=== PATIENT | male | born 1960 | race Caucasian/White ===

== ENCOUNTER 2025-02-15 01:49 | Day surgery (SDC) | payer OTHER, SELFPAY ==
--- NOTE | 2025-02-05 07:48 | P.HP_ITS ---
History of Present Illness History of Present Illness Consent: Risks, benefits, and alternatives have been discussed and questions answered. Patient agrees to proceed with procedure. Chief complaint: elevated psa Narrative: Leo Dean is a 64 year old male former patient of Dr. Mckenzie recently found to have a PSA 11 and a 4K score of 88 (increased risk profile). Prostate MRI shows 1 region of interest. After discussion of options he has elected to proceed with an MRI guided biopsy and is aware the risk including, but not limited to, failure to diagnose cancer, rectal bleeding and systemic infection Review of Systems Review of Systems: All systems reviewed & are unremarkable except as noted in HPI and below Exam Const: General: no acute distress Resp: Effort & Inspection: normal respiratory effort GI: Inspection: non-distended GI Palp: No abdominal tenderness and No Guarding due to palpation present (GI) Auscultation: normal bowel sounds Assessment and Plan Assessment and plan (1) Elevated PSA: Code(s): R97.20 - Elevated prostate specific antigen [PSA] Status: Acute Assessment and Plan: * Uronav prostate biopsy
[2025-02-06 14:14] VITALS: BMI 25.4
--- NOTE | 2025-02-06 14:41 | PC.NURSE ---
Report to the Outpatient Waiting Room, entrance under the green pavilion located off [facility], at time _10:00AM on date 02/15/25 . Planned Procedure Time: __12:00PM .? Time changes happen often and if your time is changed the preop area will call you the afternoon before. - You and your visitor will be asked to self-screen and do not enter if you have any COVID symptoms. Please call surgeon if you need to reschedule. - A mask is optional within the hospital at this time. Patients may have clear liquids (water, carbonated beverages, clear teas, apple juice) until 3 hours prior to surgery with a maximum of 20 ounces. - No food from midnight until time of surgery and no smoking, or chewing tobacco (or any form of nicotine). No chewing gum, candy or mints. - Take only the following medications with a SIP of water on the morning of surgery: _LEVOTHYROXINE DO NOT STOP ANY OF YOUR OTHER PRESCRIPTION MEDICATIONS PRIOR TO SURGERY EXCEPT THE FOLLOWING Hold all vitamins and supplements for 3 days per anesthesiologist. Medications to discontinue per physician ASPIRIN Date to take last dose____02/08/25 Please no make-up, nail japanese, hairspray, perfume, deodorant, or body powder the day of surgery.? No jewelry (including any body piercings) or valuables the day of surgery, leave them at home.? Please take a shower or bath the night before, or the morning of, surgery with an antibacterial soap.? Wear comfortable, loose fitting clothing.? - Jewelry must be removed prior to entering the operating room.? Rings and piercings that are not removed may be cut off. - The hospital will not accept responsibility for valuables.? - Please leave all valuables, including medications, at home the day of surgery. If you are going home after surgery, a licensed driver education road instructor must drive you home.? - NO public transportation without another adult if you receive anesthesia. - We recommend that an adult stay with you for 24 hours following discharge. - We also recommend that you do not drive, make important decision, drink alcoholic beverages, or take any drugs that were not prescribed by your health care provider for at least 24 hours after your discharge time. For Pediatric surgeries, we recommend two adults accompany the child home. Follow any additional instructions given to you from your surgeon. Telephone instructions given to and asked if any additional questions and then verbalized understanding. Patient advised to call surgeon office or pre surgery nurse liaison [phone] if any additional questions.
--- NOTE | 2025-02-06 14:45 | PC.NURSE ---
Report to the Outpatient Waiting Room, entrance under the green pavilion located off [facility], at time __10:00AM on date 02/15/25 . Planned Procedure Time: __12:00PM .? Time changes happen often and if your time is changed the preop area will call you the afternoon before. - You and your visitor will be asked to self-screen and do not enter if you have any COVID symptoms. Please call surgeon if you need to reschedule. - A mask is optional within the hospital at this time. Patients may have clear liquids (water, carbonated beverages, clear teas, apple juice) until 3 hours prior to surgery with a maximum of 20 ounces. - No food from midnight until time of surgery and no smoking, or chewing tobacco (or any form of nicotine). No chewing gum, candy or mints. Take only the following medications with a SIP of water on the morning of surgery: ____LEVOTHYROXINE DO NOT STOP ANY OF YOUR OTHER PRESCRIPTION MEDICATIONS PRIOR TO SURGERY EXCEPT THE FOLLOWING Hold all vitamins and supplements for 3 days per anesthesiologist. Medications to discontinue per physician ASPIRIN Date to take last dose 02/08/25 Please no make-up, nail dominican, hairspray, perfume, deodorant, or body powder the day of surgery.? No jewelry (including any body piercings) or valuables the day of surgery, leave them at home.? Please take a shower or bath the night before, or the morning of, surgery with an antibacterial soap.? Wear comfortable, loose fitting clothing.? - Jewelry must be removed prior to entering the operating room.? Rings and piercings that are not removed may be cut off. - The hospital will not accept responsibility for valuables.? - Please leave all valuables, including medications, at home the day of surgery. If you are going home after surgery, a licensed tractor sweeper driver must drive you home.? - NO public transportation without another adult if you receive anesthesia. - We recommend that an adult stay with you for 24 hours following discharge. - We also recommend that you do not drive, make important decision, drink alcoholic beverages, or take any drugs that were not prescribed by your health care provider for at least 24 hours after your discharge time. Follow any additional instructions given to you from your surgeon. Telephone instructions given to OLEKSANDR and asked if any additional questions and then verbalized understanding. Patient advised to call surgeon office or pre surgery nurse liaison [phone] if any additional questions.
--- OUTSIDE RECORDS SUMMARY | 2025-02-15 01:53 | XMS_ITS | Clinical Summary ---
Author Organization [facility] Address [facility] [place] [address] Care Team Providers Care Purification Director Name Role Phone Alex Mcmanus MD Primary Care Provider +1- [phone] Allergies No known active allergies Medications aspirin 81 mg enteric coated tablet 01/04/2019 Active atorvastatin (LIPITOR) 10 mg tablet 01/04/2019 Active SYNTHROID 50 mcg tablet 01/04/2019 Active AMITIZA 24 mcg capsule 01/23/2019 Active VIAGRA 100 mg tablet 01/04/2019 Active Active Problems Problem Noted Date Diagnosed Date Impaired cognition 01/24/2014 Surgical History Surgery Date Site/Laterality Comments HI THORACOSCOPY W/PLEURODESIS Thoracoscopy (Therapeutic) With Pleurodesis - (Added by TW Conv) Medical History Medical History Date Comments Other pneumothorax Spontaneous p neumothorax - twice within 6 months in 1994, unclear etiology (Added by TW Conv) Family History Medical History Relation Name Comments Stroke Other Stroke Syndrome - grandmother, in old age (Added by TW Conv) Relation Name Status Comments Other Social History Tobacco Use Types Packs/Day Years Used Date Smoking Tobacco: Never Personal Safety Answer Date Recorded Getting School Help Needed Not on file 08/27 Sex and Gender Information Value Date Recorded Sex Assigned at Not on file Legal Sex Male 11:02 AM MANAGER STORY Gender Identity Not on file Sexual Orientation Not on file Obstetrics History Last Filed Vital Signs Vital Sign Reading Time Taken Comments Blood Pressure 107/61 06/24/2018 1:13 PM MANAGER STORY Pulse 56 06/24/2018 1:13 PM MANAGER STORY Temperature 36.3 C (97.3 F) 06/24/2018 1:13 PM MANAGER STORY Respiratory Rate - - Oxygen Saturation 100% 06/24/2018 1:13 PM MANAGER STORY Inhaled Oxygen Concentration - - Weight 78.5 kg (173 lb) 06/24/2018 1:13 PM MANAGER STORY Height 175.3 cm (5' 9) 06/24/2018 1:13 PM MANAGER STORY Body Mass Index 25.55 06/24/2018 1:13 PM MANAGER STORY Plan of Treatment Not on file Insurance [facility] CLAIMS Care Teams Purification Director Relationship Specialty Start Date End Date Alex Mcmanus MD [address] [address] PCP - General 07/22/18
--- OUTSIDE RECORDS SUMMARY | 2025-02-15 01:53 | XMS_ITS | Encounter Summary ---
Author Organization [facility] Facility Care Team Providers Care Head Animal Trainer Name Role Phone Alex Mcmanus MD Primary Care Provider +1- [phone] Encounter Details Date Type Department Care Team (Latest Contact Info) Description 06/29/2018 Orders Only [facility] CLINCON[facility] ProviderLennox MD [address] [place] [address] Social History Tobacco Use Types Packs/Day Years Used Date Smoking Tobacco: Never Sex and Gender Information Value Date Recorded Sex Assigned at Not on file Legal Sex Male 11:02 AM CUSTOMS AND IMMIGRATION OFFICER Gender Identity Not on file Sexual Orientation Not on file documented as of this encounter Plan of Treatment Not on file documented as of this encounter Procedures Procedure Name Priority Date/Time Associated Diagnosis Comments PROCEDURE - RESULT 06/29/2018 12 :00 AM CUSTOMS AND IMMIGRATION OFFICER documented in this encounter Results * PROCEDURE - RESULT (06/29/2018 12:00 AM CUSTOMS AND IMMIGRATION OFFICER) Narrative 06/29/2018 12:00 AM CUSTOMS AND IMMIGRATION OFFICER Ordered by an unspecified provider. us Historical Provider Final Res ult documented in this encounter Visit Diagnoses Not on filedocumented in this encounter Care Teams Head Animal Trainer Relationship Specialty Start Date End Date Alex Mcmanus MD [address] [place] [address] [place] [address] PCP - General 07/22/18 documented as of this encounter
--- OUTSIDE RECORDS SUMMARY | 2025-02-15 01:53 | XMS_ITS | Encounter Summary ---
Author Organization [facility] Facility Care Team Providers Care Wood Heel Attacher Name Role Phone Alex Mcmanus MD Primary Care Provider +1- [phone] Encounter Details Date Type Department Care Team (Latest Contact Info) Description 06/28/2018 Orders Only [facility] CLINCONV ProviderLennox MD [address] [place] [address] Social History Tobacco Use Types Packs/Day Years Used Date Smoking Tobacco: Never Sex and Gender Information Value Date Recorded Sex Assigned at Not on file Legal Sex Male 11:02 AM PROSTHETIC AIDES TEACHER Gender Identity Not on file Sexual Orientation Not on file documented as of this encounter Plan of Treatment Not on file documented as of this encounter Procedures Procedure Name Priority Date/Time Associated Diagnosis Comments PROCEDURE - RESULT 06/28/2018 12 :00 AM PROSTHETIC AIDES TEACHER documented in this encounter Results * PROCEDURE - RESULT (06/28/2018 12:00 AM PROSTHETIC AIDES TEACHER) Narrative 06/28/2018 12:00 AM PROSTHETIC AIDES TEACHER Ordered by an unspecified provider. us Historical Provider Final Res ult documented in this encounter Visit Diagnoses Not on filedocumented in this encounter Care Teams Wood Heel Attacher Relationship Specialty Start Date End Date Alex Mcmanus MD [address] [place] [address] [place] [address] PCP - General 07/22/18 documented as of this encounter
--- NOTE | 2025-02-15 06:02 | WPDHPUPDATE1 ---
History and Physical Update Update Date/Time: 02/15/25 06:02 History and Physical has been reviewed, including an updated exam of the patient. There are NO changes in the patient's condition. Risks, benefits, and alternatives have been discussed and questions answered. Patient agrees to proceed with procedure.
[2025-02-15 10:00] VITALS: BP 108/68; PULSE 62; RESP 16; TEMP 36.5; O2SAT 100; BMI 25.9
--- NOTE | 2025-02-15 10:59 | S_PTH ---
PATIENT: Leo Dean LOC: [facility] U#:[id number] AGE/SX: 64/M ROOM: RE02/15/[address]: Leo Nicholson MD : 1960 BED: DIS: 02/15/2025 SPEC #: [id number] RECD: 02/15/25 11:59 STATUS: CYRUS RE #: [id number] VENUS: 02/15/25 10:[address]: Leo Nicholson DEPT: [facility] Surgical RECD BY: Glo Zavala ENTERED: 02/15/25 12:00 SP TYPE: Surgical OTHR DR: Alex Mcmanus, Tissues: A - Prostate Bx B - Prostate Bx C - Prostate Bx D - Prostate Bx E - Prostate Bx F - Prostate Bx G - Prostate Bx H - Prostate Bx I - Prostate Bx J - Prostate Bx K - Prostate Bx L - Prostate Bx M - Prostate Bx Procedures: Unstained Slides Hematoxylin and Eosin Stain Prostate Biopsy PIN 4 Prostate Triple Stain
--- NOTE | 2025-02-15 11:21 | P.PNAN_ITS ---
Anes - Initial Pre Proc Eval Procedure: Operation Date: 02/15/25 12:00 Proposed Procedures p Transrectal Ultrasound Fusion Guided Prostate Biopsy - Leo Nicholson MD Date/Time: 02/15/25 11:21 Surgeon: Leo Nicholson MD Pre Op Diagnosis: elevated psa Patient Data Age: 64 Gender: M Height: 1.73 m Weight: 77.6 kg Last Vital Signs Temp 36.5 C 02/15/25 10:00 Pulse 62 02/15/25 10:00 Resp 16 02/15/25 10:00 BP 108/68 02/15/25 10:00 Pulse Ox 100 02/15/25 10:00 Allergies Allergy/AdvReac Type Severity Reaction Status Date / Time No Known Allergies Allergy Verified 02/06/25 14:39 Home Medications ?Medication ?Instructions ?Recorded ?Confirmed ?Type aspirin 81 mg tablet,delayed 81 mg PO DAILY 02/06/25 0 02/15/25 History release (Adult Aspirin Regimen) atorvastatin 40 mg tablet 40 mg PO QPM 02/06/25 History levothyroxine 50 mcg tablet 50 mcg PO DAILY 02/06/25 0 02/06/25 History (Synthroid) lubiprostone 24 mcg capsule 24 mcg PO DAILY 02/06/25 0 02/06/25 History Patient hx anesthesia problems: none Family hx anesthesia problems: none Results Review: All pre-operative results and documents have been reviewed as part of the pre- operative evaluation. [facility] Social History Social History Smoking status: Never smoker Alcohol intake: current Substance use: never Substance use type: does not use Living arrangements: with family Spiritual care concerns: No Anes - Eval Final PreProcedure Day of Procedure 02/15/25 11:21 Patient weight: normal Heart: regular rate and rhythm Lungs: clear to auscultation Airway: Mallampati scale class II Neurological: alert and oriented Last oral intake: >/= 8 hours ASA classification: II Emergent: no Anesthetic plan: proceed Anesthesia type and monitoring: general GIVS and standard monitoring Results Review: All pre-operative results and documents have been reviewed as part of the pre- operative evaluation. Informed Consent: The patient's anesthetic plan and its attendant risks and benefits were discussed with the patient/family/POA. Questions were solicited and answers provided to the satisfaction of the patient/family/POA.
[2025-02-15] MEDS: cefTRIAXone 1 GM in SODIUM CHLORIDE 0.9% IV 50 ML 100 ML IVPB (11:23)
[2025-02-15 11:43] VITALS: BP 99/58; PULSE 60; RESP 18; O2SAT 97
[2025-02-15] MEDS: LACTATED RINGERS 1,000 ML 30 ML IV CONT (11:43)
--- NOTE | 2025-02-15 11:51 | P.OP_ITS ---
Procedure Note - Detailed Date of Procedure 02/15/25 Pre-op Diagnosis Elevated PSA, abnormal MRI prostate Post-op Diagnosis Same Procedure Performed Uronav prostate biopsy Surgeon Leo Nicholson MD Anesthesia General Description of Procedure Patient is brought to the operative suite where he is positioned in the left lateral position. Systemic sedation is administered per the anesthesia department. Surgical time-out is undertaken and it's verified the patient has received preoperative antibiotics. Transrectal ultrasonography is undertaken with a standard transrectal probe. The [employer] system is used to superimpose his previously obtained mpMRI prostate images on the real-time transrectal ultrasond images. On the previous mpMRI there is regions of interest. Using the transrectal needle design for prostate biopsies 3 cores from each region of interest her obtain. We then proceeded with a standard 12 core prostate biopsy. Transrectal probe was removed and patient taken to recovery room having tolerated the procedure well. Blood loss was less than 10 cc. Pathology Yes Complications No immediate complications Condition Stable
[2025-02-15 12:13] VITALS: BP 124/76; PULSE 55
[2025-02-15 12:34] VITALS: BP 126/75; PULSE 51
== END 2025-02-15 12:35 | disposition home or self-care (01) ==
PROVIDERS: PCP Family Medicine; Visit Provider Urology
PROC: (CPT 55700; principal; 2025-02-15 12:00)
DX: R97.20 Elevated prostate specific antigen [PSA] (principal)
CPT/HCPCS: 55700; 76872; 88344; G0416; J0696; J2003; J2250; J2704; J7120